=== PATIENT | female | born 1965 | race Caucasian/White ===

== ENCOUNTER 2023-08-29 11:14 | Emergency (ER) | payer MEDICARE, MEDICAID, SELFPAY ==
[2023-08-29 11:14] VITALS: BP 187/100; PULSE 90; RESP 18; TEMP 36.4; O2SAT 98; BMI 42.3
--- NOTE | 2023-08-29 11:42 | EKG12_ITS ---
Test Reason : GENERAL Blood Pressure : / mmHG Vent. Rate : 086 BPM Atrial Rate : 086 BPM P-R Int : 160 ms QRS Dur : 092 ms QT Int : 386 ms P-R-T Axes : 027 010 029 degrees QTc Int : 461 ms Normal sinus rhythm Inferior infarct , age undetermined Abnormal ECG Confirmed by RANDALL MCGOWAN, MAU ([id number]), writer editor DELFINO GOLDBERG ([id number]) on 08/30/2023 9:15:17 AM Referred By: Confirmed By:MAU PEREIRA MD
--- NOTE | 2023-08-29 11:45 | EX.ED.VIS.UR ---
HPI HPI - URI History of Present Illness Chief Complaint: Shortness of Breath Informant: patient Onset/Context/Timing Onset: Days Context: Gradual Onset Timing: Continuous Current Severity: Mild Maximum Severity: Mild Associated Symptoms Associated Symptoms: Positive for Headache, Myalgias, Shortness of Breath and Productive Cough (Yellow to green sputum. No hemoptysis.) Narrative Narrative: 58-year-old female history of diabetes and hypertension. Prior breast cancer. Said she has been short of breath with a cough and headache for the last 7 to 10 days. Monday was seen in the [facility] urgent care. Had a chest x-ray that diagnosed her with pneumonia and started on amoxicillin. Says she is not feeling any better. Denies any vomiting or diarrhea. Subjective fever but no documented fever. Denies any dysuria. No abdominal pain. Prior similar symptoms: Yes Recent Illness/Hospitalization: No ROS ROS ED ROS Narrative Productive cough. Shortness of breath. Subjective fever. Headache. Review of Systems ROS Unobtainable: Denies due to encephalopathy Constitutional Constitutional ED: Reports fever(s) and subjective; Denies chills Eyes Eyes: Denies blurry vision ENT ENT ED: Denies ear pain Cardiovascular Cardiovascular: Denies chest pain Respiratory/Chest Respiratory/Chest: Reports cough Gastrointestinal Gastrointestinal: Denies abdominal pain, constipation, diarrhea, melena, nausea or vomiting Genitourinary Genitourinary ED: Denies dysuria or hematuria Musculoskeletal Musculoskeletal: Denies arthralgias or back pain Integumentary Denies abscess Neurologic Neurologic: Reports headache(s) Psychiatric Psychiatric: Denies anxiety or depression Endocrine Endocrinology: Denies cold intolerance Hematologic/Lymphatic Hematologic/Lymphatic: Denies easy bleeding, easy bruising or lymphadenopathy Allergic/Immunologic Allergic/Immunologic ED: Denies mouth swelling, tongue swelling or urticaria PFSH PFS Home Medications cyanocobalamin (vitamin B-12) 500 mcg tablet 500 mcg PO DAILY@0800 08/27/14 [History Last Taken Unknown] glucosamine 750 [id number] 1 625 mg-D3 1,000 [id number]-Bosw tablet (Glucosamine-Chondroitin Complex) 1 ea PO DAILY 08/27/14 [History Last Taken Unknown] hydrochlorothiazide 25 mg tablet 25 mg PO DAILY 08/27/14 [History Last Taken Unknown] lisinopril 30 mg tablet (Zestril) 30 mg PO DAILY 08/27/14 [History Last Taken 09/03/14 05:00] metformin 500 mg tablet 500 mg PO BIDCM 08/27/14 [History Last Taken Unknown] pravastatin 20 mg tablet 20 mg PO QHS 08/27/14 [History Last Taken Unknown] vits,calcium no.78-iron fumarate-folic acid 29 mg-1 mg tablet (Prenatabs FA) 1 tab PO DAILY 08/27/14 [History Last Taken Unknown] sertraline 100 mg tablet 100 mg PO DAILY 08/27/14 [History Last Taken Unknown] tramadol 50 mg tablet 50 mg PO Q6H PRN PRN Pain 08/27/14 [History Last Taken Unknown] estradiol 2 mg tablet (Estrace) 2 mg PO DAILY #30 tabs 09/05/14 [Rx Last Taken Unknown] ibuprofen 400 mg tablet 800 mg (2 x 400 mg) PO Q6H PRN PRN Abdominal Pain ##30 09/05/14 [Rx Last Taken Unknown] oxycodone-acetaminophen 5 mg-325 mg tablet 2 tab PO Q4H PRN PRN Moderate-Severe pain ##40 09/05/14 [Rx Last Taken Unknown] Allergy/AdvReac Type Severity Reaction Status Date / Time No Known Allergies Allergy Verified 08/29/23 11:16 Social History Smoking Status: Never smoker EXAM Physical Exam Narrative Exam Narrative: 4-year-old female vital signs stable afebrile. Pulse ox 90% on room air no signs hypoxia. HEENT exam unremarkable. Moist with membranes. Neck nontender no lymphadenopathy. Lungs clear to auscultation bilaterally. Heart regular rhythm rate about 90 no murmur. Chest wall and ribs nontender. Abdomen soft nontender. Moving all 4 extremities. Calves are nontender without edema or cords. Neurologically patient is awake alert no focal motor deficits. 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 Dorsi plantarflexion intact. Answering questions and following commands. Const Vital Signs: 08/29/23 11:14 08/29/23 11:46 08/29/23 11:58 Temperature 97.6 F L Temperature Source Temporal Pulse Rate 90 Respiratory Rate 18 Respiratory Effort Normal Non-Labored Respiratory Depth Normal Respiratory Pattern Normal Blood Pressure 187/100 H Blood Pressure Mean 129 Pulse Ox 98 Oxygen Delivery Method Room Air Room Air Room Air 08/29/23 13:04 08/29/23 13:14 Temperature 98.3 F Temperature Source Oral Pulse Rate 85 89 Respiratory Rate 20 H 19 H Respiratory Effort Respiratory Depth Respiratory Pattern Blood Pressure 146/80 H 140/71 H Blood Pressure Mean 102 94 Pulse Ox 92 94 Oxygen Delivery Method Room Air Room Air Positive well nourished and well developed; Negative for cachectic or contractures General Appearance ED: well developed and NAD; Negative for cachectic, contractures, cyanotic, diaphoretic or pallor Nutritional Appearance: Negative for cachectic HEENT Reports moist mucous membranes; Denies dry mucous membranes normocephalic and atraumatic; Negative for scalp tenderness Face and Sinus: Negative for sinus tenderness Mouth ED: No dry mucous membranes Mouth: No dry mucous membranes Teeth and Gingiva: Negative for caries Throat: posterior oropharynx normal Eyes PERRL and EOMs intact bilaterally General Eye ED: Negative for pale conjunctiva or scleral icterus Neck no lymphadenopathy, supple, no meningeal signs and no JVD General: Negative for anterior neck swelling or lymphadenopathy Resp normal respiratory effort and clear to auscultation bilaterally Effort and Inspection: Negative for retractions Auscultation: Negative for rales, rhonchi, wheezes or diminished lung sounds Cardio S1 normal heart sound, S2 normal heart sound and no murmurs Rate: regular rate Rhythm: regular rhythm GI non-tender, non-distended and no masses Inspection: Negative for abdominal distention Auscultation: normoactive bowel sounds Palpation: soft; Negative for tender or guarding Back/Spine no CVA tenderness and normal ROM General Back: Negative for CVA tenderness Cervical Spine: Negative for cervical spine tenderness Thoracic Spine / Upper Back: Negative for thoracic spinal tenderness Lumbar Spine / Lower Back: Negative for lumbar spinal tenderness Sacrum: Negative for tenderness Extremity normal to inspection and full ROM General Extremety ED: Negative for cyanosis or tenderness General Extremity: Negative for cyanosis Neuro oriented x3 and CN's II-XII intact bilaterally Sensorium / Orientation: alert, oriented to person, oriented to place and oriented to time; Negative for orientation impaired, lethargic or stuporous Motor Exam: strength 5/5 throughout Psych mental status grossly normal Appearance: Negative for other Attitude: No agitated Mood & Affect: Negative for depressed, anxious or tearful Skin General Skin Exam: Negative for jaundice or pallor Lesions: no lesions Rashes: no rashes Trauma: Negative for abrasion, laceration or puncture MDM MDM MDM Narrative Medical decision making narrative: 58-year-old female recent diagnosed pneumonia via shortness of breath and not improving on the antibiotic she has been on since Monday. Screening labs. Chest x-ray and EKG. Exam benign. Repeat exam patient doing well at 2:30 PM. We went over her test results which are basically unremarkable. She may have had pneumonia that resolved and or a viral syndrome. I do not think she needs any further testing today. Her pulse ox is 94 to 90%. Patient be discharged home with outpatient follow-up as needed. History & Record Review Discussion w/independent historian: Patient Additional record(s) reviewed:: Prior inpatient record, Prior outpatient record, Prior ED visit and Prior labs Lab Data Attestation: I reviewed the patient's lab results. Lab results narrative: CBC normal. White count of 5. H&H 14 and 43. Platelets 445. Electrolytes show sodium 135. Gap 10. Normal BUN and creatinine. Glucose 343. Labs: Laboratory Results - last 24 hr 08/29/23 11:55 WBC 5.7 RBC 5.10 Hgb 14.4 Hct 43.5 MCV 85.3 MCH 28.2 MCHC 33.1 RDW Std Deviation 41.4 RDW Coeff of Nick 13.4 Plt Count 445 MPV 9.9 Immature Gran % (Auto) 0.500 Neut % (Auto) 58.2 Lymph % (Auto) 30.6 Benton % (Auto) 6.2 Eos % (Auto) 3.4 Baso % (Auto) 1.1 H Absolute Neuts (auto) 3.3 Absolute Lymphs (auto) 1.73 Nucleated RBC % 0 Sodium 135 L Potassium 3.8 Chloride 103 Carbon Dioxide 22.0 Anion Gap 10 BUN 11 Creatinine 0.81 Estim Creat Clear Calc 87.26 Est GFR (MDRD) Af Amer 93 Est GFR (MDRD) Non-Af 77 BUN/Creatinine Ratio 13.6 Glucose 343 H Calcium 9.5 Radiography Chest X-Ray - ED: 2 View, Read by ED Physician, Read by Radiologist, Heart, Lungs, Mediastinum, Bony Structures, No Acute Disease and Chronic Changes Diagnostic Testing: Clinical Impression(s) from Imaging Studies Chest X-Ray 08/29/23 12:05 IMPRESSION: No acute abnormality is present. Electronically Signed: Nigel Xie MD at 12:41 EDT , Chest x-ray, 2 views, AP and lateral, interpreted by myself and radiologist shows no acute process. No pneumonia. No effusion. Normal cardiac silhouette. Chronic changes in the lung parekh. No acute process. Rhythm Strip Rhythm Strip: Sinus Rhythm Rate: 86 Ectopy: None EKG Initial EKG: Interpretation: Sinus Rhythm and No Acute Injury Pattern Comments: Normal sinus rhythm rate 86 no acute signs of [place] or ischemia. There is an old [place] inferiorly which is seen on a prior EKG from August 1999 15 about 9 years ago. Prior EKG tracings: available for review Prior: Unchanged Discharge Plan Triage Chief Complaint: Shortness of Breath ED Provider: Christopher Xiong Dx/Rx/DC Orders Clinical Impression: Hyperglycemia due to diabetes mellitus, Acute dyspnea, History of pneumonia, History of hypertension Instructions: ED Diabetic Hyperglycemia, ED Dyspnea Prescriptions: No Action metformin 500 MG tablet 500 mg PO BIDCM Patient Comments: DIABETES sertraline 100 MG tablet 100 mg PO DAILY Patient Comments: ANXIETY/DEPRESSION tramadol 50 MG tablet 50 mg PO Q6H PRN PRN (Reason: Pain) Patient Comments: PAIN cyanocobalamin (vitamin B-12) 500 MCG tablet 500 mcg PO DAILY@0800 Patient Comments: SUPPLEMENT lisinopril [Zestril] 30 MG tablet 30 mg PO DAILY Patient Comments: BLOOD PRESSURE pravastatin 20 MG tablet 20 mg PO QHS Patient Comments: CHOLESTEROL hydrochlorothiazide 25 MG tablet 25 mg PO DAILY Patient Comments: WATER PILL vit,[id number] [Prenatabs FA] 1 TABLET tablet 1 tab PO DAILY Patient Comments: SUPPLEMENT [id number] [Glucosamine-Chondroitin Complx] 1 EACH tablet 1 ea PO DAILY Patient Comments: SUPPLEMENT oxycodone-acetaminophen 1 TABLET tablet 2 tab PO Q4H PRN PRN (Reason: Moderate-Severe pain ) Qty: 40 0RF Patient Comments: PAIN ibuprofen 400 MG tablet 800 mg PO Q6H PRN PRN (Reason: Abdominal Pain) Qty: 30 2RF Patient Comments: PAIN estradiol [Estrace] 2 MG tablet 2 mg PO DAILY Qty: 30 6RF Patient Comments: HORMONE Primary Care Provider: Care Physician,No Primary Referrals: Kadie Freed MD [Non-Staff] - 3-5 Days if not improving Activity Restrictions/Additional Instructions: Your labs, EKG and chest x-ray look good today. Your blood sugar was elevated at 343. Follow-up with your doctor if your shortness of breath is not improving. There is no signs of pneumonia or fluid on your chest x-ray today. This should progressively improve. Disposition Disposition: Home, Self Care
--- NOTE | 2023-08-29 12:05 | RAD_ITS ---
STUDY: X-RAY CHEST REASON FOR EXAM: Female, 58 years old. Chest pain TECHNIQUE: PA and lateral views of the chest. COMPARISON: Comparison is made with prior study August 27, 2014. FINDINGS: EKG electrodes are seen. The lungs are clear and expanded. There is no demonstrated pleural abnormality. Normal size heart. Normal mediastinum and tamar. Normal visualized pulmonary arteries. There is atherosclerotic calcification of the aortic arch with tortuosity. There are diffuse degenerative changes of the visualized thoracic spine. Normal visualized ribs, clavicles, and shoulders. There is no demonstrated abnormality of the visualized soft tissue structures of the upper abdomen. RAD/Chest PA and Lateral IMPRESSION: No acute abnormality is present. Electronically Signed: Nigel Xie MD at 12:41 EDT ,
[2023-08-29 12:19] LABS: Absolute Lymphocyte Count 1.73 X10^3/uL (0.83-4.51); Absolute Neutrophil Count 3.3 X10^3/uL (2.0-7.7); Basophil# 0.06 X10^3/uL; Basophil% 1.1 % (0-1); Eosinophil# 0.19 X10^3/uL; Eosinophils% 3.4 % (0-5); Hematocrit 43.5 % (37-47); Hemoglobin 14.4 g/dL (12.0-15.0); Lymphocyte # 1.73 X10^3/ul (0.83-4.51); Lymphocyte % 30.6 % (19-41); Mean Corp Hgb Conc 33.1 g/dL (32-36); Mean Corpuscular Hgb 28.2 pg (27.0-32.0); Mean Corpuscular Volume 85.3 fL (81-99); Mean Platelet Vol. 9.9 fl (6.2-12.0); Monocyte# 0.35 X10^3/uL; Monocyte% 6.2 % (0-10); NRBC Flagged by Analyzer 0 % (0-5); Neutrophil # 3.29 X10^3/uL (2.7-7.7); Neutrophil % 58.2 % (47-70); Platelet Count 445 K/mm3 (150-450); RBC Distribution Width CV 13.4 % (11.6-14.6); RBC Distribution Width SD 41.4 fl (35.1-43.9); White Blood Count 5.7 K/mm3 (4.4-11.0)
[2023-08-29 12:57] LABS: Anion Gap 10 (5-15); BUN 11 mg/dL (7-18); BUN/Creat Ratio 13.6 RATIO (10-20); Calcium,Total 9.5 mg/dL (8.5-10.1); Chloride 103 mmol/L (98-107); Creatinine, Serum 0.81 mg/dL (0.55-1.02); EST Glomerular Filtration Rate 77 mL/min (>60); Est Glom Filt Rate - Afr Amer 93 mL/min (>60); Estimated Creatinine Clearance 87.26 ml/min; Glucose 343 mg/dL (74-106); Potassium 3.8 mmol/L (3.5-5.1); Sodium Level 135 mmol/L (136-145)
[2023-08-29 13:04] VITALS: BP 146/80; PULSE 85; RESP 20; TEMP 36.8; O2SAT 92
[2023-08-29 13:14] VITALS: BP 140/71; PULSE 89; RESP 19; O2SAT 94
[2023-08-29 14:40] VITALS: BP 158/70; PULSE 87; RESP 19; TEMP 36.3; O2SAT 94
== END 2023-08-29 14:42 | disposition home or self-care (01) ==
PROVIDERS: Emergency Provider Emergency Medicine; Visit Provider Emergency Medicine
DX: E11.65 Type 2 diabetes mellitus with hyperglycemia (principal); R06.00 Dyspnea, unspecified; R51.9 Headache, unspecified; I10 Essential (primary) hypertension; M79.10 Myalgia, unspecified site; R05.9 Cough, unspecified; Z87.01 Personal history of pneumonia (recurrent); I25.2 Old myocardial infarction
CPT/HCPCS: 71046; 80048; 85025; 93005; 99283; A4216